=== PATIENT | female | born 1985 | race Caucasian/White ===

== ENCOUNTER → 2016-11-23 | Outpatient (CLI) | payer OTHER ==
[2016-11-30 13:53] LABS: CHLAMYDIA TRACH RNA*** NOT DETECTED (NOT DETECTED); GC (NEIS GONORRHOEAE)RNA** NOT DETECTED (NOT DETECTED); TRICHOMONAS VAGINALIS RNA** NOT DETECTED (NOT DETECTED)
== END | disposition home or self-care (01) ==
LOC: C.LABSPEC 10:01
PROVIDERS: ATTEND Obstetrics & Gynecology
DX: N76.0 Acute vaginitis (principal)

== ENCOUNTER → 2017-06-15 | Outpatient (CLI) | payer OTHER ==
--- NOTE | 2017-06-15 11:41 | DIAGNOSTIC IMAGING REPORT ---
RIGHT ANKLE MIN 3 VIEWS ROUTINE HISTORY: 32 years-old Female M25.571 acute right ankle pain and swelling status post recent injury. COMPARISON: None available TECHNIQUE: 3 views of the right ankle. FINDINGS: No acute fracture, dislocation or significant degenerative changes. No osteochondral defect. There is mild soft tissue swelling about the ankle with a small joint effusion. Negative for radiopaque foreign body. IMPRESSION: Mild circumferential ankle soft tissue swelling with small joint effusion. No fracture. The above report was generated using voice recognition software. It may contain grammatical, syntax or spelling errors. Electronically signed by: Chris Moyer M.D. 06/15/2017 11:39 AM Dictated Date/Time: 06/15/2017 11:38 AM
== END | disposition home or self-care (01) ==
LOC: C.RAD 11:05
PROVIDERS: ATTEND Family Medicine
DX: M25.571 Pain in right ankle and joints of right foot (principal)

== ENCOUNTER → 2017-12-28 | Outpatient (CLI) | payer OTHER | END | disposition home or self-care (01) | LOC: C.LABMFLN 08:13 | PROVIDERS: ATTEND Family Medicine | DX: E78.5 Hyperlipidemia, unspecified (principal) ==

== ENCOUNTER 2021-07-07 16:31 | Inpatient (IN) ==
[2021-07-07 18:04] LABS: Eosinophils # (auto) 0.03 K/uL (0-0.5); Eosinophils % (auto) 0.3 %; Hematocrit (blood only) 31.6 % (37-47); Hemoglobin 10.4 g/dL (12.0-16.0); Immature Granulocytes # (auto) 0.03 K/uL (0.00-0.02); Immature Granulocytes % (auto) 0.3 %; Lymphocytes % (auto) 10.8 %; Mean Corpuscular Hemoglobin 28.8 pg (25-34); Mean Corpuscular Hgb Conc 32.9 g/dL (32-36); Mean Corpuscular Volume 87.5 fL (80-100); Mean Platelet Volume 11.1 fL (7.4-10.4); Monocytes # (auto) 0.56 K/uL (0.11-0.59); Neutrophils % (auto) 83.6 %; Platelet Count 190 K/uL (130-400); RDW Coefficient of Variation 14.3 % (11.5-14.5); RDW Standard Deviation 46.2 fL (36.4-46.3); Red Blood Count 3.61 M/uL (4.2-5.4); White Blood Count 11.12 K/uL (4.8-10.8)
[2021-07-07 18:24] LABS: Albumin Level 2.4 gm/dl (3.4-5.0); BUN Creatinine Ratio 15.3 (10-20); Calcium 8.8 mg/dl (8.5-10.1); Creatinine Clr Calc Pharmacy 130.5 ml/min; Est GFR (African American) 132.6 ml/min; Est GFR (Non-African American) 114.4 ml/min; Potassium 3.8 mmol/L (3.5-5.1)
[2021-07-07 18:26] LABS: Albumin Globulin Ratio 0.6 (0.9-2); Bilirubin,Total 0.2 mg/dl (0.2-1); Globulin 4.2 gm/dl (2.5-4.0); Total Protein 6.6 gm/dl (6.4-8.2)
[2021-07-07 18:35] LABS: Appearance Urine Clear (Clear); Bacteria Urine Automated Negative (Negative); Bilirubin Urine Negative (Negative); Blood Urine Trace (Negative); Color Urine Yellow; Glucose Urine UA Negative (Negative); Ketones Urine Negative (Negative); Leukocyte Esterase Urine Negative (Negative); Nitrite Urine Negative (Negative); Protein Urine Negative (Negative); RBC Urine Automated 0-4 /hpf (0-4); Specific Gravity Urine 1.011 (1.000-1.030); Urobilinogen Urine Negative (Negative); pH Urine 6.5 (4.5-7.5)
--- NOTE | 2021-07-07 18:36 | History & Physical Report ---
Date of Service July 07, 2021 Assessment & Plan (1) abnormality affecting management of mother: (2) Supervision of elderly primigravida: Plan: thus far prolonged monitoring has been normal. no evidence of ctx, therefore doubt any abruption related to [place] fall, did not hit abdomen. also bps elevated, neg protein, no sx but will check labs. may need to rpt bp when sitting today and have pt return to office tomorrow for repeat evaluation. although my colleague d/w this patient on phone, upon reading her office note, will play close attention to pt perception of fm. i was not planning bpp here if monitoring was wnl, which it is and normal dvp today so modified bpp is normal but will see about pt perception of movement with more time. awaiting all lab results. History of Present Illness Chief Complaint: prolonged monitoring Primary Care Provider: Rachel Taylor MD 36yo at 36+wks ega sent from office by Dr. Medina due to ? change in baseline heart rate of fetus on nst. Patient with abnormal cfDNA, suspicious for Down's, no amnio done, who is getting growth u/s, nsts biweekly to monitor. Fetus had normal echo. Patient very anxious since coming here. She says her bp in office was normal. Elevated here today. Growth US AGA today but smaller than previous. Normal DVP. Patient notes can feel fm, decreased compared to earlier in . PNC c/b 1. suspicious for fetus with down's 2. Rh neg. 3. hypothyroidism 4. ama PNL rh neg, ri, gbs pending. Allergies Allergy/AdvReac Type Severity Reaction Status Date / Time No Known Allergies Allergy Verified 07/07/21 16:46 Home Medications Medication Instructions Recorded Confirmed Type levothyroxine 50 mcg tablet 50 mcg PO DAILY #90 tab 12/01/20 07/07/21 Rx (Synthroid) Patient History Medical History Hyperlipidemia Hypothyroidism Surgical History S/P tonsillectomy Family History Father Gallbladder disease Hypertension Brother Gallbladder disease Hypertension Social History Smoking Status: Never smoker Second Hand Exposure: No; Hx Alcohol Use: Yes Alcohol type: wine Alcohol Intake Frequency: Monthly or Less Hx Substance Use: No Preferred Language: Tajik Communication Ability: Effective Hearing Ability: Normal Package [place] Required: No Beliefs That Will Affect Care: None marital status: marital status details: marva (32) [phone] Current Living Situation: Spouse and Family Current Living Situation Comment: lives with spouse and step son, 4 dogs. current occupational status: employed current occupation: [employer] How many Children do You have Comment: 1 step son Feels Safe at Home: Yes Childhood Exposure to Second-Hand Smoke: No Seatbelt Use: sometimes Sunscreen Use: No Assistive Devices: None Review of Systems as per Subjective / HPI Physical Exam Constitutional: WD/WN, vitals as above Gastrointestinal (Abdomen): soft gravid nt Neurologic: grossly normal Psychiatric: A+Ox3, euthymic affect Genitourinary: OB Exam Monitor Tracing: + external FHT monitor used, + external uterine monitor used (no contractions), + category I and + normal FHT variability Results & Data ([facility]) Vital Signs (Past 12 Hours) Vital Signs Temp Pulse Resp BP 07/07/21 17:49 82 132/85 07/07/21 17:34 92 H 139/92 07/07/21 17:16 88 150/79 H 07/07/21 16:48 98.4 F 16 07/07/21 16:45 95 H 144/76 H 07/07/21 16:44 98.4 F 18 Coding Level of Care Code None Diagnoses abnormality affecting management of mother O35.9XX0 Supervision of elderly primigravida O09.519
--- NOTE | 2021-07-07 20:52 | Ultrasound Report ---
US OB BPP wo NST single CLINICAL HISTORY: 36 years-old Female presenting with poor movement.. TECHNIQUE: Real-time grayscale ultrasound imaging of the fetus was performed for a focused evaluation at the site of clinical concern. COMPARISON: ultrasound performed on July 07, 2021 at at 2:02 hours FINDINGS: No movement, extension/flexion of the fetus was seen during this exam. No breathing movement are seen during exam. Amniotic fluid index is measuring 9.04 cm. heart rate is measuring 131 bpm which is similar to recent prior study performed earlier today. IMPRESSION: 1. No evidence of movements, breathing movements or extension/flexion is seen during exam. Bio physical profile score is 2/8. Findings will be sent to patient's unit. 2. heart activity is present and appears similar to recent prior study performed earlier today . ACT 112: Negative or not required by law. Electronically signed by: Rosa Isela Kauffman DO 07/07/2021 8:51 PM
[2021-07-07] MEDS ORDERED: LACTATED RINGER'S 1,000 ML IV SCH ×2 (21:00→22:00)
[2021-07-07] MEDS ORDERED: ceFAZolin 2000MG 2,000 MG/15 ML SYR IV SCH (21:10)
--- NOTE | 2021-07-07 21:10 | Obstetrical Progress Note ---
Date of Service July 07, 2021 Assessment & Plan (1) abnormality affecting management of mother: (2) Need for rhogam due to Rh negative mother: (3) Supervision of elderly primigravida: (4) Abnormal screening blood test for Down syndrome in first trimester: (5) H/O biophysical profile with non-stress test: Plan: discussed results with patient and spouse. offered induction of labor. can see how baby tolerates labor, she declines. she wants section. consent reviewed and signed. anesth, or, peds aware. Subjective when i interviewed pt about one hour ago she noted that she does not feel much movement. she marked movement and told me she is uncertain. i ordered bpp, it returned 12/13, with reactive nst 02/12 Review of Systems Constitutional: as per Subjective / HPI Physical Exam Constitutional: WD/WN, vitals as above Genitourinary: OB Exam Monitor Tracing: + external FHT monitor used, + external uterine monitor used (irreg), + category I and + normal FHT variability Results & Data ([facility]) Vital Signs (Past 12 Hours) Vital Signs Temp Pulse Resp BP 07/07/21 17:49 82 132/85 07/07/21 17:34 92 H 139/92 07/07/21 17:16 88 150/79 H 07/07/21 16:48 98.4 F 16 07/07/21 16:45 95 H 144/76 H 07/07/21 16:44 98.4 F 18 PG Care Time/CCT Total # of Minutes Spent Total Time Spent with Patient: Total time spent is greater than 50% in coordination of care (as documented) at patient's floor/unit and/or counseling patient: Coding Level of Care Code None Diagnoses abnormality affecting management of mother O35.9XX0 Need for rhogam due to Rh negative mother Z29.13 Supervision of elderly primigravida O09.519 Abnormal screening blood test for Down syndrome in first trimester O28.5 H/O biophysical profile with non-stress test Z92.89
[2021-07-07] MEDS ORDERED: CITRIC ACID/SODIUM CITRATE 15 ML UDC ONE (21:30)
--- NOTE | 2021-07-07 22:18 | Communication Note ---
Date of Service: July 07, 2021 Dr. Donta aquino discussed patient with me further and expressed concern for poss repiratory issues with suspected down's and no labor. I was sure to share his concerns with couple to indicate it is possible baby will need transfer to tertiary care center after delivery. I expressed to them with current BPP, i am not comfortable with transporting pt, needs to be delivered here. They verbalized understanding and told me that all along they knew that was a possibility and are accepting of that and understand need to proceed with delivery.
[2021-07-07] MEDS ORDERED: MoRPHine SULFATE PF 1 MG/ML 10 ML AMP/VIAL ONE (22:54)
[2021-07-07] MEDS ORDERED: fentaNYL citrate 100 MCG/2 ML VIAL ONE (22:54)
[2021-07-07] MEDS ORDERED: NALOXONE HCL 0.08 MG in SYRINGE 1.8 ML IV PRN (23:40)
[2021-07-07] MEDS ORDERED: MoRPHine SULFATE PF 1 MG/ML 10 ML AMP/VIAL INT SPINAL ONE (23:40)
[2021-07-07] MEDS ORDERED: HYDROmorphone INJ 0.5 MG/0.5 ML SYR IV PRN (23:40)
[2021-07-07] MEDS ORDERED: LACTATED RINGER'S 500 ML IV PRN (23:40)
[2021-07-07] MEDS ORDERED: MEPERIDINE HCL 25 MG/ML CARP/VIAL IV PRN (23:40)
[2021-07-07] MEDS ORDERED: NALOXONE HCL 0.4 MG/1 ML VIAL/CARP IV PRN (23:40)
[2021-07-07] MEDS ORDERED: ePHEDrine sulfate 50 MG/ML AMP IV PRN (23:40)
[2021-07-07] MEDS ORDERED: PROMETHAZINE HCL 6.25 MG in SODIUM CHLORIDE 0.9% 50 ML IV PRN (23:40)
[2021-07-07] MEDS ORDERED: NALOXONE HCL 1 MG in SODIUM CHLORIDE 0.9% 1000ML 1,000 ML IV PRN (23:40)
[2021-07-07] MEDS ORDERED: ONDANSETRON INJ 2 MG/ML 2 ML VIAL IV PRN (23:40)
[2021-07-07] MEDS ORDERED: NALBUPHINE HCL INJ 10 MG/ML AMP IV PRN (23:40)
[2021-07-07] MEDS ORDERED: MoRPHine SULFATE 2 MG/ML CARP IV PRN (23:40)
[2021-07-07] MEDS ORDERED: diphenhydrAMINE 50 MG/ML VIAL IV PRN (23:40)
--- NOTE | 2021-07-07 23:40 | Anesthesiology Consultation ---
Date of Service July 07, 2021 Assessment & Plan (1) Encounter for pre-operative examination: Chart Review Chart Review: Acceptable Risk for Surgery and Patient NOT seen in Pre Admission Testing Consults Requested none ASA ASA2 Proposed Anesthesia Anesthesia Type: Spinal (+intrathecal narcotics) Risk / Benefits Reviewed With: PT / POA / Parent / Guardian, Accepts Plan and Informed Consent Obtained History Surgery Operation Date: 07/07/21 21:00 Proposed Procedures p Section in LD - Neha Ramos MD, FACOG Height/Weight Height: 5 ft 4 in Weight: 91.626 kg Allergies Allergy/AdvReac Type Severity Reaction Status Date / Time No Known Allergies Allergy Verified 07/07/21 16:46 Medications Home Medications Medication Instructions Recorded Confirmed Last Taken levothyroxine 50 mcg tablet 50 mcg PO DAILY #90 tab 12/01/20 07/07/21 07/07/21 07:15 (Synthroid) NPO Date Last Intake of Fluids: 07/07/21 Time Last Intake of Fluids: 20:00 Date Last Intake of Solids: 07/07/21 Time Last Intake of Solids: 12:30 Past Medical History Medical History Hyperlipidemia Hypothyroidism Exercise / Class Metabolic Activity II 4-5 Yardwork/Stairs/Walk up hill Past Family History Family History Father Gallbladder disease Hypertension Brother Gallbladder disease Hypertension Past Surgical History Surgical History S/P tonsillectomy Past Anesthesia History No Hx of Anesthesia Complications and No Family Hx of Anesthesia Complications History of PONV No Hx of PONV and No Hx of Motion Sickness Social History Smoking Status: Never smoker Hx Alcohol Use: Yes Alcohol type: wine Hx Substance Use: No substance use type: does not use Physical Exam Vital Signs Last Vital Signs Temp 36.9 C 07/07/21 16:48 Pulse 82 07/07/21 17:49 Resp 16 07/07/21 16:48 BP 132/85 07/07/21 17:49 ENMT Mouth: no dentition abnormality Thyromental Distance: > or= 3.5 Finger Breadths Mallampati Class: II Neck normal visual inspection Respiratory normal respiratory effort Auscultation: lungs clear to auscultation bilaterally Cardiovascular Rate/Rhythm: regular rate and regular rhythm Psychiatric Orientation: alert Testing Laboratory Results 07/07/21 17:53 07/07/21 17:53 Urine Color Yellow 07/07/21 18:00 Urine Appearance Clear (Clear) 07/07/21 18:00 Urine pH 6.5 (4.5-7.5) 07/07/21 18:00 Ur Specific [place] 1.011 (1.000-1.030) 07/07/21 18:00 Urine Protein Negative (Negative) 07/07/21 18:00 Urine Glucose (UA) Negative (Negative) 07/07/21 18:00 Urine Ketones Negative (Negative) 07/07/21 18:00 Urine Nitrite Negative (Negative) 07/07/21 18:00 Ur Leukocyte Esterase Negative (Negative) 07/07/21 18:00 Urine WBC (Auto) 1-5 /hpf (0-5) 07/07/21 18:00 Urine RBC (Auto) 0-4 /hpf (0-4) 07/07/21 18:00 U Hyaline Cast (Auto) 1-5 /lpf (0-5) 07/07/21 18:00 U Epithel Cells (Auto) 10-20 /lpf (0-5) H 07/07/21 18:00 Urine Bacteria (Auto) Negative (Negative) 07/07/21 18:00 Blood Type A Negative 07/07/21 21:12 Antibody Screen POSITIVE A 07/07/21 21:12
[2021-07-07] MEDS ORDERED: SODIUM CHLORIDE 0.9% 1000ML 1,000 ML IV SCH (23:45)
[2021-07-07] MEDS ORDERED: DC INTRASPINAL MORPHINE SCH (23:45)
[2021-07-07] MEDS ORDERED: NO NARCOTICS OR SEDATIVES SCH (23:45)
[2021-07-07] MEDS ORDERED: ONDANSETRON INJ 2 MG/ML 2 ML VIAL ONE (23:47)
[2021-07-07] MEDS ORDERED: PHENYLEPHRINE 100MCG/ML 5ML SYR ONE (23:47)
[2021-07-07] MEDS ORDERED: OXYTOCIN 10 UNITS/ML VIAL ONE (23:47)
[2021-07-07] MEDS ORDERED: KETOROLAC 30 MG/ML VIAL ONE (23:47)
--- NOTE | 2021-07-07 23:48 | Post Operative Brief Note ---
PG Immediate Post Op with CF Date of Surgery July 07, 2021 Pre & Post Diagnosis Operation Date: 07/07/21 21:00 Pre-Op Diagnosis: 36 week intrauterine Non-reassuring testing, abnormal BPP Unfavorable cervix, Remote from delivery Patient request elective section Post-Op Diagnosis: 36 week intrauterine Non-reassuring monitoring Remote from delivery Patient request elective section I identified the patient and participated in the time-out.: Yes Procedure Operation Date: 07/07/21 21:00 Actual Procedures p Primary Low Transverse Section in LD - Neha Ramos MD, FACOG Surgeon Neha Ramos MD, FACOG Floor Grinder barry Estimated Blood Loss 600 Findings Consistent with Post-Op Diagnosis (viable male, apgars 8,9, normal uterus tubes and ovaries bilaterally) Fluids 1000cc Specimens Specimen Description: Delivery of a live male child at 2316 Placenta (Exam) Cord Blood Cord Gases Drains Santizo Catheter (Urine output being monitored by anesthesia ) Anesthesia Type Spinal Complications none Disposition Accompanied Patient To Recovery: No Disposition: L&D
--- NOTE | 2021-07-07 23:50 | Operative Report ---
PG Post Operative Report Pre & Post Diagnosis Operation Date: 07/07/21 21:00 Pre-Op Diagnosis: 36 week intrauterine Non-reassuring testing, abnormal BPP Unfavorable cervix, Remote from delivery Patient request elective section Post-Op Diagnosis: same I identified the patient and participated in the time-out.: Yes Procedure Operation Date: 07/07/21 21:00 Actual Procedures Primary Low Transverse Section - Neha Ramos MD, FACOG Surgeon Neha Ramos MD, FACOG Marine Equipment Preservation Inspector Carol Estimated Blood Loss 600 Findings Consistent with Post-Op Diagnosis (viable male, apgars 8,9, normal uterus tubes and ovaries bilaterally) Fluids 1000 Specimens cord blood, cord gases, placenta Drains chaudhary Anesthesia Type Spinal Complications none Disposition Accompanied Patient To Recovery: No Disposition: L&D Indications 36yo at 36+wks with poor fm and concern on nst resulting in BPP, with findings of 2/8, total 4/10 due to reactive nst. She was counseled about need for delivery and desired to proceed with section. Description of Procedure The patient was taken to the operating room and identified. After adequate anesthesia was obtained, she was placed in the supine position with a leftward tilt on the operating table and prepped and draped in the usual sterile fashion. A chaudhary catheter had already been placed. The knife was used to create a Pfannensteil skin incision that was carried down to the underlying layer of fascia. The fascia was nicked in the midline and this opening was extended laterally using Monterroso scissors. Katarzyna clamps were placed on the superior and inferior aspect of the fascial incision tenting it upward and the underlying rectus muscles were dissected off the overlying fascia both sharply and bluntly using Monterroso scissors. The rectus muscles were bluntly in the midline. The peritoneal cavity was bluntly entered into. This opening was stretched. The bladder blade was placed. The vesicouterine peritoneum was elevated and opened up into and the bladder flap was created digitally and bladder blade was replaced. The knife was used to create a hysterotomy and this opening was not easily stretched and so bandage scissors were used to extend laterally. The operators hand was placed through the hysterotomy and the bladder blade was removed. The head was elevated but required vacuum assistance for delivery along with fundal pressure. The cephalic was delivered followed by the shoulders and body rapidly. Body cord noted. The cord was clamped and cut and the infant was handed off to the awaiting pediatricians. Cord blood and cord gases were obtained. The placenta was manually expressed. The uterus was exteriorized and cleared of all clots and debris. Dilute IV Pitocin was begun. The uterine tone was improving. The hysterotomy was closed in a running interlocking fashion using 0 Vicryl followed by a second imbricating layer of 0 Vicryl. The hysterotomy was not hemostatic and therefore additional figure of eight sutures of 2-0 vicryl were placed on left of hysterotomy. Hemostasis adequate. The pelvis was irrigated. The uterus was returned to the abdomen. The gutters were cleared of all clots and debris. The hysterotomy was reinspec jaime and noted to be hemostatic. The fascia was then closed in running fashion using 0 Vicryl. The subcutaneous fat was copiously irrigated and reapproximated using 2-0 chromic. The skin was closed in a subcuticular fashion using 4-0 Vicryl. At this point the procedure was terminated. The patient was transferred to the recovery room in stable condition. All sponge, lap and needle counts are correct x2. I attest to the content of the Intraoperative Record and any orders documented therein. Any exceptions are noted below. OB Procedure charges OB Charges 67144 C/S
--- NOTE | 2021-07-08 00:11 | Anesthesiology Progress Note ---
Date of Service July 08, 2021 Anesthesia Post Procedure Vital Signs Vital Signs: Temp Pulse Resp BP Pulse Ox 07/08/21 00:06 67 99 07/08/21 00:01 65 123/53 L 100 07/07/21 17:49 82 132/85 07/07/21 17:34 92 H 139/92 07/07/21 17:16 88 150/79 H 07/07/21 16:48 36.9 C 16 07/07/21 16:45 95 H 144/76 H 07/07/21 16:44 36.9 C 18 Transfer of Care Handoff Completed per policy Notes Mental Status: alert / awake / arousable Nausea / Vomiting: adequately controlled Pain: adequately controlled Airway Patency, RR, SpO2: stable & adequate BP & HR: stable & adequate Hydration State: stable & adequate Neuraxial Anesthesia: was administered and sensory block is resolving Anesthetic Complications: no major complications apparent and Pt Satisfied with anesthetic care
[2021-07-08] MEDS ORDERED: SENNA 8.6 MG TAB PO PRN (00:29)
[2021-07-08] MEDS ORDERED: ONDANSETRON INJ 2 MG/ML 2 ML VIAL IV PRN (00:29)
[2021-07-08] MEDS ORDERED: PROMETHAZINE HCL 25 MG in SODIUM CHLORIDE 0.9% 50 ML IV PRN (00:29)
[2021-07-08] MEDS ORDERED: BENZOCAINE 20% AER SPR 82.5 GM CAN EXT PRN (00:29)
[2021-07-08] MEDS ORDERED: DIPHTHERIA/TETANUS/PERTUSSIS 0.5 ML SYR/VIAL IM ONE (00:29)
[2021-07-08] MEDS ORDERED: HYDROCORTISONE ACETATE 25 MG SUPP PR PRN (00:29)
[2021-07-08] MEDS ORDERED: LACTATED RINGER'S 1,000 ML IV SCH (00:29)
[2021-07-08] MEDS ORDERED: MAGNESIUM HYDROXIDE SUSP 30 ML UDC PO PRN (00:29)
[2021-07-08] MEDS ORDERED: SUPERCREAM 0.870% 15 GM JAR EXT PRN (00:29)
[2021-07-08 00:31] LABS: Base Excess Cord Arterial Bld -4.8 mEq/L (-9-1.8); Base Excess Cord Venous Blood -3.3 mEq/L (-7.7-1.9); CO2 Cord Arterial Blood 60 mmHg (39.1-73.5); Cord Venous Blood HCO3 23 mmol/L (18.4-26.8); Cord Venous Blood PCO2 46 mmHg (30.4-57.2); Cord Venous Blood PO2 20 mmHg (14.1-43.3); Cord Venous Blood pH 7.32 (7.20-7.44); HCO3 Cord Arterial Blood 24 mmol/L (19.7-28.5); pH Cord Arterial Blood 7.23 (7.1-7.38)
[2021-07-08 00:32] LABS: O2 Saturation Cord Venous Bld < 60.0 % (<68)
[2021-07-08 00:36] LABS: Oxygen Sat Cord Arterial Blood < 60.0 % (<60); PO2 Cord Arterial Blood < 10 mmHg (4.1-31.7)
[2021-07-08] MEDS: KETOROLAC 30 MG/ML VIAL IV PRN ×2 (01:46→12:37)
[2021-07-08] MEDS: OXYTOCIN 20 UNITS in LACTATED RINGER'S 1,000 ML IV SCH ×2 (02:30→12:19)
--- NOTE | 2021-07-08 06:09 | Obstetrical Progress Note ---
Date of Service <Patria Allred MD - Last Filed: 07/08/21 07:19> July 08, 2021 Assessment & Plan <Patria Allred MD - Last Filed: 07/08/21 07:19> (1) Delivery by section: 36 yo POD1 from [facility] at 36w6d, complicated by hypothyroidism and AMA, child with T21 -Continue routine care -Vitals reviewed- BPs elevated, afebrile. Monitor BP, Labetalol PRN for SBP >160, DBP >110 -Blood type A-, GBS unknown, Rubella immune -D/c Chaudhary today -Encourage ambulation -Pain control with Motrin, Percocet PRN -Advance diet as tolerated -Monitor bowel function -Monitor lochia -Encourage -Hgb 10.4 -F/u in 6 weeks with OB <Neha Ramos MD, FACOG - Last Filed: 07/08/21 07:32> (1) Delivery by section: Subjective <Patria Allred MD - Last Filed: 07/08/21 07:19> Ambulation: limited ambulation Voiding: chaudhary catheter in place Passing Gas:: No Diet Tolerance:: regular diet Lochia:: Small Feeding Type:: bottle feeding Current Pain Level(1-10): 0 Pt and baby doing well, no acute events or complaints. Has not passed BM yet. Review of Systems Denies fevers/chills. Denies dyspnea, cough. Denies chest pain. Denies breast pain or discharge. Denies dysuria. Denies headache. Physical Exam <Patria Allred MD - Last Filed: 07/08/21 07:19> General: Alert, oriented, no acute distress Cardiac: Regular rate and rhythm, normal S1, S2. No murmurs appreciated. Respiratory: Clear to auscultation b/l with good air flow entry, symmetric chest rise and fall. No wheezes or crackles. No increased work of breathing or accessory muscle use Abdomen: Soft, nontender, nondistended. Fundus firm and palpable at 2 cm below umbilicus. Surgical incision clean, dry and intact without erythema, warmth or drainage. Bowel sounds appreciated. No guarding or rebound. Skin: No rashes or lesions Extremities: Warm, dry, well-perfused with capillary refill <2s b/l. No lower extremity edema, erythema or swelling. Negative Justice's sign b/l. Results & Data ([facility]) <Patria Allred MD - Last Filed: 07/08/21 07:19> Vital Signs (Past 12 Hours) Vital Signs Temp Pulse Pulse Resp BP BP Pulse Ox 07/08/21 05:31 18 99 07/08/21 04:30 18 100 07/08/21 03:30 36.6 C 68 18 142/94 H 100 07/08/21 02:30 36.9 C 68 18 138/76 100 07/08/21 02:11 68 99 07/08/21 02:10 61 138/76 07/08/21 02:06 61 99 07/08/21 02:01 72 18 95 07/08/21 02:00 59 L 138/67 07/08/21 01:56 59 L 98 07/08/21 01:51 62 98 07/08/21 01:50 62 135/67 07/08/21 01:46 64 98 07/08/21 01:41 70 99 07/08/21 01:40 63 151/77 H 07/08/21 01:36 70 99 07/08/21 01:31 68 18 98 07/08/21 01:30 67 149/111 H 07/08/21 01:26 66 98 07/08/21 01:21 69 98 07/08/21 01:20 67 134/80 07/08/21 01:16 68 98 07/08/21 01:11 65 97 07/08/21 01:10 63 137/85 07/08/21 01:06 66 97 07/08/21 01:01 73 18 97 07/08/21 01:00 65 135/81 07/08/21 00:56 71 98 07/08/21 00:51 65 18 98 07/08/21 00:50 67 132/82 07/08/21 00:46 67 97 07/08/21 00:41 66 18 97 07/08/21 00:40 62 139/81 07/08/21 00:36 69 98 07/08/21 00:31 64 18 99 07/08/21 00:30 64 134/84 07/08/21 00:26 78 100 07/08/21 00:21 66 18 100 07/08/21 00:20 63 132/75 07/08/21 00:19 67 127/79 07/08/21 00:16 66 100 07/08/21 00:12 85 205/97 H 07/08/21 00:11 65 18 100 07/08/21 00:06 67 99 07/08/21 00:01 36.9 C 65 18 123/53 L 100 <Neha Ramos MD, FACOG - Last Filed: 07/08/21 07:32> Co-Signing Physician Notes Resident Physician Supervision Note: I was present with Dr. Allred during the history and exam. I discussed the case with the resident and agree with the findings and plan as documented in the note. Any exceptions or clarifications are listed here: charo po, chaudhary in place. no cp/sob, no n/v. bps labile, ff 2 down nt. incision with dressing in place nt calves. POD#1 routine postop care. bottle (may consider ), rh neg, needs rhogam, baby rh pos. watch bps. labile. Documented By: Neha Ramos MD, FACOG Resident Activity Tracking <Patria Allred MD - Last Filed: 07/08/21 07:19> Resident Involvement: Resident Care Provided Care Provided: OB Delivery
[2021-07-08] MEDS: LEVOTHYROXINE SODIUM 50 MCG TABLET PO SCH (06:21)
[2021-07-08] MEDS: DOCUSATE SODIUM 100 MG CAP PO SCH ×3 (09:37→20:35)
[2021-07-08] MEDS: FERROUS SULFATE 325 MG TAB PO SCH (09:37)
[2021-07-08] MEDS: SIMETHICONE 80 MG CHEW PO SCH ×3 (09:37→20:29)
[2021-07-08] MEDS: PRENATAL VITAMIN 1 TAB PO SCH (09:38)
[2021-07-08] MEDS ORDERED: diphenhydrAMINE 50 MG/ML VIAL IV PRN (17:40)
[2021-07-08] MEDS ORDERED: oxyCODONE/ACETAMINOPHEN 5mg/325mg TAB PO PRN (17:40)
[2021-07-08] MEDS: IBUPROFEN 600 MG TAB PO PRN (20:28)
[2021-07-08] MEDS: diphenhydrAMINE Capsule 25 MG CAP PO PRN (23:48)
[2021-07-09] MEDS: IBUPROFEN 600 MG TAB PO PRN ×4 (03:19→21:29)
--- NOTE | 2021-07-09 05:49 | Obstetrical Progress Note ---
Date of Service <Patria Allred MD - Last Filed: 07/09/21 07:23> July 09, 2021 Assessment & Plan <Patria Allred MD - Last Filed: 07/09/21 07:23> (1) Delivery by section: 36 yo POD2 from [facility] at 36w6d, complicated by hypothyroidism and AMA, child with T21 -Continue routine care, anticipated discharge tomorrow -Vitals reviewed- HDS, afebrile -Blood type A-, GBS unknown, Rubella immune. Rh-, baby Rh+, Rhogam administered -Pain control with Motrin, Percocet PRN -Regular diet -Encourage -Hgb 10.4 -F/u in 6 weeks with OB <Rubina Medina MD - Last Filed: 07/09/21 07:20> (1) Delivery by section: Subjective <Patria Allred MD - Last Filed: 07/09/21 07:23> Ambulation: limited ambulation Voiding: no voiding problems Passing Gas:: No Diet Tolerance:: regular diet Lochia:: Small Feeding Type:: bottle feeding Current Pain Level(1-10): 0 Pt and baby doing well, no acute events or complaints. Has not passed BM yet. Has not initiated yet, but will attempt to do so. Review of Systems Denies fevers/chills. Denies dyspnea, cough. Denies chest pain. Denies breast pain or discharge. Denies dysuria. Denies headache. Physical Exam <Patria Allred MD - Last Filed: 07/09/21 07:23> General: Alert, oriented, no acute distress Cardiac: Regular rate and rhythm, normal S1, S2. No murmurs appreciated. Respiratory: Clear to auscultation b/l with good air flow entry, symmetric chest rise and fall. No wheezes or crackles. No increased work of breathing or accessory muscle use Abdomen: Soft, nontender, nondistended. Fundus firm and palpable at 2 cm below umbilicus. Surgical incision clean, dry and intact without erythema, warmth or drainage. Bowel sounds appreciated. No guarding or rebound. Skin: No rashes or lesions Extremities: Warm, dry, well-perfused with capillary refill <2s b/l. No lower extremity edema, erythema or swelling. Negative Justice's sign b/l. Results & Data ([facility]) <Patria Allred MD - Last Filed: 07/09/21 07:23> Vital Signs (Past 12 Hours) Vital Signs Temp Pulse Resp BP Pulse Ox 07/08/21 23:35 37.0 C 69 18 129/81 98 07/08/21 20:00 36.9 C 97 H 20 132/86 98 <Rubina Medina MD - Last Filed: 07/09/21 07:20> Co-Signing Physician Notes Resident Physician Supervision Note: I interviewed and examined the patient. Discussed with Dr. Allred and agree with findings and plan as documented in the note. Any exceptions or clarifications are listed here: [ ] Documented By: Rubina Medina MD, FACOG
[2021-07-09] MEDS: LEVOTHYROXINE SODIUM 50 MCG TABLET PO SCH (06:13)
[2021-07-09 06:34] LABS: Basophils # (auto) 0.01 K/uL (0-0.2); Basophils % (auto) 0.1 %; Eosinophils # (auto) 0.07 K/uL (0-0.5); Eosinophils % (auto) 0.8 %; Hematocrit (blood only) 25.1 % (37-47); Hemoglobin 8.2 g/dL (12.0-16.0); Immature Granulocytes # (auto) 0.03 K/uL (0.00-0.02); Immature Granulocytes % (auto) 0.3 %; Lymphocytes % (auto) 13.9 %; Mean Corpuscular Hemoglobin 28.9 pg (25-34); Mean Corpuscular Hgb Conc 32.7 g/dL (32-36); Mean Corpuscular Volume 88.4 fL (80-100); Mean Platelet Volume 10.8 fL (7.4-10.4); Monocytes # (auto) 0.39 K/uL (0.11-0.59); Monocytes % (auto) 4.5 %; Neutrophils # (auto) 6.91 K/uL (1.4-6.5); Neutrophils % (auto) 80.4 %; Platelet Count 192 K/uL (130-400); RDW Coefficient of Variation 14.7 % (11.5-14.5); RDW Standard Deviation 47.9 fL (36.4-46.3); Red Blood Count 2.84 M/uL (4.2-5.4); White Blood Count 8.61 K/uL (4.8-10.8)
[2021-07-09] MEDS: SIMETHICONE 80 MG CHEW PO SCH ×5 (08:15→21:29)
[2021-07-09] MEDS: FERROUS SULFATE 325 MG TAB PO SCH (08:21)
[2021-07-09] MEDS: DOCUSATE SODIUM 100 MG CAP PO SCH ×2 (08:21→21:29)
[2021-07-09] MEDS: PRENATAL VITAMIN 1 TAB PO SCH (08:21)
[2021-07-09] MEDS ORDERED: oxyCODONE HCL IR 5 MG TAB (IMMEDIATE RELEASE) PO PRN (16:54)
[2021-07-09] MEDS: ACETAMINOPHEN 500 MG TAB PO PRN (17:28)
[2021-07-10] MEDS: diphenhydrAMINE Capsule 25 MG CAP PO PRN (02:33)
[2021-07-10] MEDS: ACETAMINOPHEN 500 MG TAB PO PRN (02:33)
[2021-07-10 06:21] LABS: Hematocrit (blood only) 24.7 % (37-47); Hemoglobin 8.3 g/dL (12.0-16.0)
[2021-07-10] MEDS: LEVOTHYROXINE SODIUM 50 MCG TABLET PO SCH (06:34)
[2021-07-10] MEDS: SIMETHICONE 80 MG CHEW PO SCH (07:31)
[2021-07-10] MEDS: PRENATAL VITAMIN 1 TAB PO SCH (07:32)
[2021-07-10] MEDS: DOCUSATE SODIUM 100 MG CAP PO SCH (07:32)
[2021-07-10] MEDS: FERROUS SULFATE 325 MG TAB PO SCH (07:32)
--- NOTE | 2021-07-10 07:55 | Obstetrical Progress Note ---
Date of Service July 10, 2021 Assessment & Plan (1) Delivery by section: 36 yo POD 3 from [facility], doing well -Meeting all pp milestones -A-/rubella immune/bottlefeeding. s/p rhogam -Pt appears to meet criteria for gHTN with pp BPs, had normal CMP on admission. Will have BP check later this week in office -f/u 6 weeks for appt otherwise, stable or d/c home today Subjective Ambulation: ambulating normally Voiding: no voiding problems Passing Gas:: Yes Diet Tolerance:: regular diet Lochia:: Small Feeding Type:: bottle feeding Pain well managed with medication Review of Systems Denies fevers, chills, n/v, MATA, CP, SOB Physical Exam Constitutional WD/WN, vitals as above no acute distress Respiratory normal respiratory effort, lungs clear to auscultation Cardiovascular RRR, no murmur, no edema Gastrointestinal (Abdomen) Inspection/Auscultation: + abdominal surgical scar (incision c/d/i) Percussion/Palpation: abdomen soft; abdomen nontender fundus firm at umbilicus and NT Musculoskeletal BLE symmetric, nonerythematous, nontender Results & Data ([facility]) Vital Signs (Past 12 Hours) Vital Signs Temp Pulse Resp BP 07/09/21 23:50 98.2 F 106 H 18 149/85 H
[2021-07-10] MEDS ORDERED: ONDANSETRON 4 MG OD TAB PO PRN (07:56)
[2021-07-10] MEDS: oxyCODONE HCL IR 5 MG TAB (IMMEDIATE RELEASE) PO PRN ×2 (09:35→14:39)
[2021-07-10] MEDS: IBUPROFEN 600 MG TAB PO PRN ×2 (09:36→14:39)
--- NOTE | 2021-07-12 00:09 | Discharge Summary ---
Date of Service Day of Admission: July 07, 2021 Day of Discharge: 07/10/21 Admission HPI Per Admitting Provider 36yo at 36+wks ega sent from office by Dr. Medina due to ? change in baseline heart rate of fetus on nst. Patient with abnormal cfDNA, suspicious for Down's, no amnio done, who is getting growth u/s, nsts biweekly to monitor. Fetus had normal echo. Patient very anxious since coming here. She says her bp in office was normal. Elevated here today. Growth US AGA today but smaller than previous. Normal DVP. Patient notes can feel fm, decreased compared to earlier in . PNC c/b 1. suspicious for fetus with down's 2. Rh neg. 3. hypothyroidism 4. ama PNL rh neg, ri, gbs pending. Discharge Data Consultations 07/07/21 20:58 Consult Anesthesiology Stat Procedures Performed Operation Date: 07/07/21 21:00 Actual Procedures p Primary Low Transverse Section in - Neha Ramos MD, [facility] Course (1) At risk for alteration in status: (2) Hypothyroidism during : (3) 36 weeks gestation of : (4) Delivery by elective section: Patient was evaluated for gestational hypertension and status. Despite reactive nst, patient continued to note poor to absent sense of movement. A BPP was performed resulting in score of 4/10 and given gestational age recommended delivery. Patient declined induction of labor and preferred direct c/s now. The patient underwent the above stated procedure without incident and her postoperative course and recovery was uncomplicated. On her postoperative day #3 she was tolerating a regular diet, voiding spontaneously, ambulating without problem and was using oral meds for adequate pain control. Her postoperative hemoglobin was 8.3. She was given written and verbal discharge instructions and told to followup in office at 6wks. She was given appropriate pain medicine prescriptions. Coding Level of Care Code None Diagnoses At risk for alteration in status Z91.89 Hypothyroidism during O99.280; E03.9 36 weeks gestation of Z3A.36 Delivery by elective section O82
== END 2021-07-10 14:50 | disposition home or self-care (01) | DRG 788 ==
LOC: OPB 16:31 → 4S1 16:33 → 4S2 07-08 02:19